=== PATIENT | male | born 1955 | race Asian ===

== ENCOUNTER 2020-06-09 08:57 | Outpatient (CLI) | payer OTHER | END 2020-06-09 20:33 | disposition home or self-care (01) | LOC: LABW 08:57 | PROVIDERS: ATTEND Family Medicine | DX: E78.49 Other hyperlipidemia (principal); N18.30 Chronic kidney disease, stage 3 unspecified; Z85.46 Personal history of malignant neoplasm of prostate; L29.1 Pruritus scroti; E55.9 Vitamin D deficiency, unspecified ==